=== PATIENT | female | born 1955 | race Caucasian/White ===

== ENCOUNTER 2017-01-23 14:22 | Inpatient (IN) | payer BC ==
[~2017-01-23] VITALS: Ht 170.2 cm; Wt 83.9 kg
[2017-01-23] MEDS ORDERED: MAXALT10 MG PO (18:19)
[2017-01-23] MEDS ORDERED: PRILOSEC OTC20 MG PO (19:58)
[2017-01-24 06:32] LABS: HEMOGLOBIN 10.1 gm/dl (12.3-15.3); RED BLOOD COUNT 3.66 M/UL (4.00-5.10); WHITE BLOOD COUNT 6.9 K/UL (4.5-11.0)
[2017-01-24 06:55] LABS: BUN/CREATININE RATIO 20 (0-10)
[2017-01-25 06:36] LABS: HEMOGLOBIN 7.9 gm/dl (12.3-15.3); WHITE BLOOD COUNT 7.2 K/UL (4.5-11.0)
[2017-01-25 06:37] LABS: RED BLOOD COUNT 2.84 M/UL (4.00-5.10)
[2017-01-25 07:03] LABS: BUN/CREATININE RATIO 17 (0-10)
[2017-01-25 13:22] LABS: HEMOGLOBIN 10.2 gm/dl (12.3-15.3)
[2017-01-25 18:34] LABS: HEMOGLOBIN 10.6 gm/dl (12.3-15.3)
[2017-01-26 04:43] LABS: HEMOGLOBIN 10.9 gm/dl (12.3-15.3)
[2017-01-26 04:47] LABS: RED BLOOD COUNT 3.95 M/UL (4.00-5.10); WHITE BLOOD COUNT 9.4 K/UL (4.5-11.0)
[2017-01-26 05:09] LABS: BUN/CREATININE RATIO 14 (0-10)
[2017-01-26] MEDS ORDERED: PROTONIX 40 MG40 M1 PO (11:02)
[2017-01-26] MEDS ORDERED: PERCOCET 10-321 EACH PO (11:04)
== END 2017-01-26 12:33 | disposition home or self-care (01) | DRG 492 ==
LOC: M/S 14:22 → CCU 01-25 05:33
PROVIDERS: Orthopaedic Surgery; ADMIT Internal Medicine
PROC: 0PSC04Z Reposition Right Humeral Head with Internal Fixation Device, Open Approach (ICD-10-PCS; principal; 2017-01-24 14:15)
PROC: 0PSF04Z Reposition Right Humeral Shaft with Internal Fixation Device, Open Approach (ICD-10-PCS; principal; 2017-01-24 14:15)
PROC: 30233N1 Transfusion of Nonautologous Red Blood Cells into Peripheral Vein, Percutaneous Approach (ICD-10-PCS; 2017-01-25)
DX: S42.351A Displaced comminuted fracture of shaft of humerus, right arm, initial encounter for closed fracture (principal); K29.71 Gastritis, unspecified, with bleeding; D62 Acute posthemorrhagic anemia; S42.201A Unspecified fracture of upper end of right humerus, initial encounter for closed fracture; Y93.I9 Activity, other involving external motion; Y92.017 Garden or yard in single-family (private) house as the place of occurrence of the external cause; G43.909 Migraine, unspecified, not intractable, without status migrainosus; K21.0 Gastro-esophageal reflux disease with esophagitis; D50.9 Iron deficiency anemia, unspecified; V88.8XXA Person injured in other specified noncollision transport accidents involving motor vehicle, nontraffic, initial encounter; R11.2 Nausea with vomiting, unspecified; T41.45XA Adverse effect of unspecified anesthetic, initial encounter
CPT/HCPCS: 36415; 36430; 73060; 76000; 80048; 82728; 83540; 83550; 85014; 85018; 85025; 85027; 85610; 85730; 86850; 86900; 86901; 86920; 93005; C1713; C9113; J0690; J1100; J1885; J2001; J2250; J2270; J2405; J2710; J3010; J7030; J7050; J7120; P9016